=== PATIENT | male | born 1960 | race Caucasian/White ===

== ENCOUNTER → 2020-06-26 14:30 | Outpatient (BNVA) | payer OTHER, SELFPAY | PROVIDERS: PCP Internal Medicine; Referring Provider Internal Medicine; Visit Provider Urology | DX: Z76.89 Persons encountering health services in other specified circumstances (principal) ==

== ENCOUNTER → 2020-07-31 15:14 | Outpatient (BNVA) | payer OTHER, SELFPAY | PROVIDERS: PCP Internal Medicine; Visit Provider Urology | DX: R97.20 Elevated prostate specific antigen [PSA] (principal) | CPT/HCPCS: 81002 ==

== ENCOUNTER → 2021-01-29 08:43 | Outpatient (BNVA) | payer OTHER, SELFPAY | PROVIDERS: PCP Internal Medicine; Visit Provider Urology ==

== ENCOUNTER → 2021-07-03 09:37 | Outpatient (BNVA) | payer OTHER, SELFPAY | PROVIDERS: PCP Internal Medicine; Visit Provider Urology ==

== ENCOUNTER → 2021-12-31 09:27 | Outpatient (BNVA) | payer OTHER, SELFPAY | PROVIDERS: PCP Internal Medicine; Visit Provider Urology | DX: N40.1 Benign prostatic hyperplasia with lower urinary tract symptoms (principal); N13.8 Other obstructive and reflux uropathy; R35.0 Frequency of micturition; R97.20 Elevated prostate specific antigen [PSA] | CPT/HCPCS: 51798 ==

== ENCOUNTER → 2022-07-25 09:56 | Outpatient (BNVA) | payer OTHER, SELFPAY | PROVIDERS: PCP Internal Medicine; Visit Provider Urology | DX: N40.1 Benign prostatic hyperplasia with lower urinary tract symptoms (principal); N13.8 Other obstructive and reflux uropathy; R97.20 Elevated prostate specific antigen [PSA] | CPT/HCPCS: 51798 ==

== ENCOUNTER 2023-07-24 09:24 | Outpatient (AMB) | payer MEDICARE, OTHER, SELFPAY ==
--- NOTE | 2023-07-24 09:39 | A.OFFVIS_ITS ---
Intake Intake Visit Reasons: 1Y PVR Intake Note: Patient is Present for Follow Up Urology Medication: Finasteride, Tamsulosin Antibiotic Allergies: None Blood Thinners: Eliquis PVR: 0ml Currently patient is on eliquis for AFib patient states that soon Eliquis will be switched to Xarelto. Allergies No Known Allergies Allergy (Verified 07/24/23 09:42) HPI HPI Comments History of Present Illness Details Fco is a pleasant male. He is a patient of Dr. Wu. He is seen for the following urologic issues - elevated PSA - lower urinary tract symptoms Twelve month follow-up Has been on finasteride every other day Effective stream and bladder emptying Discussed bladder instability Is starting to bathroom plan May benefit from overactive bladder medications Does not think he is quite ready for this PCP checked PSA Lower urinary tract symptoms Urgency secondary to diet Elevated PSA Effective for urination with minimal symptoms He presents for - further evaluation of elevated PSA, Current management is - finasteride Laboratory investigations include - a total PSA evaluation - 03/17 3.5, 05/18 4.9 - 07/19 3.7, 01/16 4.5, 06/18 2.4, 12/18 1.5 Imaging investigations include - none Individualized Prostate Cancer Risk Calculator - < 5% high risk - would like to continue with PSA A TRUS biopsy - has not been performed Symptoms include -minimal nocturia. Overall symptoms are mild Therapeutic plan will be - continue finasteride PFSH Social History Years Smoked: 25-30 years Review of Systems Const Denies chills and Denies fever(s) Card Reports no additional complaints and Denies syncope Resp Denies cough GI Denies abdominal pain and Denies heartburn Reports as per HPI and Denies change in libido Neuro Denies syncope Psych Denies change in libido Endo Denies change in libido Physical Exam Const General: cooperative, healthy appearing, comfortable and no acute distress Orientation/consciousness: patient oriented x3 HEENT Face and sinus: Yes normal facial exam Mouth: moist mucous membranes Neck Neck: Yes normal visual inspection, Yes full ROM and Yes trachea midline Chest Chest palpation & inspection: normal inspection of the chest Resp Effort & Inspection: normal respiratory effort, able to speak in complete sentences and no respiratory distress GI Inspection: Yes normal to inspection Back/Spine/Pelvis Cervical Spine: normal cervical lordosis Thoracic/Lumbar Spine: thoracic and lumbar spine normal to inspection Skin General skin exam: no rashes or lesions noted Neuro General: patient oriented x3, gait normal, tone normal and moves all extremities Extrem General: Yes normal to inspection and Yes capillary refill normal Office Procedures Post Void Residual Post Residual Void Post Void Residual (PVR): 0 [id number] Void Residual by ultrasound Assessment & Plan Assessment & Plan (1) Urinary frequency: Code(s): R35.0 - Frequency of micturition (2) BPH w urinary obs/LUTS: Code(s): N40.1 - Benign prostatic hyperplasia with lower urinary tract symptoms; N13.8 - Other obstructive and reflux uropathy Plan Six-month follow-up tele Orders: Orders AMB Post Void Residual by ultrasound Today N13.8 - Other obstructive and reflux uropathy, N40.1 - Benign prostatic hyperplasia with lower urinary tract symptoms Patient Instructions: Imaging studies, laboratory and physical exam results were discussed and reviewed in detail. No major barriers to patient understanding were identified. An opportunity to ask questions regarding the treatment plan was provided. All questions were answered. The patient expressed understanding and agreement with the above treatment plan. The patient is aware they should contact our office by phone for worsening of their current condition or the appearance of new urologic symptoms. Compliance is encouraged with any medications and followup testing that is ordered. It is a privilege to participate in the urologic care of your patient. If you have any questions or concerns regarding treatment for the above conditions, or other urologic issues, please do not hesitate to contact me. The office telephone contact is [phone]. This note is constructed using voice recognition software. While every effort has been made to ensure accuracy application tester errors may have been included. Yours sincerely, Dr Alexander Manzano MD, CINDY [facility] - Urology Providers of Expert, Compassionate Care for the Genitourinary System Coding Level of Care Code Est Pt Level 4 (89851) Diagnoses Urinary frequency R35.0 BPH w urinary obs/LUTS N40.1; N13.8 CPT Codes Post Residual Void - PVR CPT Code: 41804-Morb Void Residual by ultrasound ([id number])
== END 2023-07-24 10:14 | disposition home or self-care (01) ==
PROVIDERS: Visit Provider Urology
DX: N40.1 Benign prostatic hyperplasia with lower urinary tract symptoms (principal); R35.0 Frequency of micturition; N13.8 Other obstructive and reflux uropathy
CPT/HCPCS: 99213

== ENCOUNTER → 2023-07-24 09:24 | Outpatient (BNVA) | payer OTHER, SELFPAY | PROVIDERS: Visit Provider Urology | DX: N40.1 Benign prostatic hyperplasia with lower urinary tract symptoms (principal); N13.8 Other obstructive and reflux uropathy; R35.0 Frequency of micturition | CPT/HCPCS: 51798; 99212 ==

== ENCOUNTER 2024-01-22 08:33 | Outpatient (AMB) | payer MEDICARE, OTHER, SELFPAY ==
--- NOTE | 2024-01-22 08:30 | MHC.OFFVIS ---
Intake Visit Reasons: 6m follow up Intake Note: Patient is Present for 6m Follow Up Urology Medication: Finasteride, Tamsulosin Antibiotic Allergies: None Blood Thinners: Eliquirene Diesel Engine Specialist Required: No Allergies No Known Allergies Allergy (Verified 01/22/24 08:31) HPI Comments Details: Fco is a pleasant male. He is a patient of Dr. Wu. He is seen for the following urologic issues - elevated PSA - lower urinary tract symptoms Telemedicine Evaluation 15 min Consultation DoxCas[employer] Billie Video Has been on finasteride every other day Effective stream and bladder emptying Prior discussion of bladder instability Has progressed and is now involve the bathroom planning and use of bathrooms in public Trial overactive bladder medication Lower urinary tract symptoms Urgency secondary to diet Elevated PSA Effective for urination with minimal symptoms He presents for - further evaluation of elevated PSA, Current management is - finasteride Laboratory investigations include - a total PSA evaluation - 03/17 3.5, 05/18 4.9 - 07/19 3.7, 01/16 4.5, 06/18 2.4, 12/18 1.5 Imaging investigations include - none Individualized Prostate Cancer Risk Calculator - < 5% high risk - would like to continue with PSA A TRUS biopsy - has not been performed Symptoms include -minimal nocturia. Overall symptoms are mild Therapeutic plan will be - continue finasteride [facility] Social History Years Smoked: 25-30 years Review of Systems Const All systems reviewed & are unremarkable except as noted in HPI and below Reports no additional complaints Resp Reports no additional complaints GI Reports no additional complaints Reports as per HPI Musc Reports no additional complaints Physical Exam Telemedicine evaluation Appropriate responses Regular breathing rate and rhythm HEENT Head: Yes normal to inspection Ears: hearing grossly normal bilaterally Eyes General: appearance normal, both eyes and all related structures Neck Neck: Yes normal visual inspection Chest Chest palpation & inspection: normal inspection of the chest Resp Effort & Inspection: normal respiratory effort and able to speak in complete sentences Telehealth Telehealth Telehealth Platform: ugichem Location of provider rendering services: practice address Location of patient: address on file Patient Identification confirmed using: Name, : Yes Telehealth method: video Patient verbally consented to treatment: Yes Patient verbally consented to billing insurance company: Yes Patient informed of any privacy concerns related to visit: Yes Minutes spent on Phone/Video with Pt.: 15 Assessment & Plan Assessment & Plan (1) Bladder instability: Code(s): N32.89 - Other specified disorders of bladder Category: Medical (2) BPH w urinary obs/LUTS: Code(s): N40.1 - Benign prostatic hyperplasia with lower urinary tract symptoms; N13.8 - Other obstructive and reflux uropathy Category: Medical Plan Trial oxybutynin Medications: New oxybutynin chloride ER 5 mg PO DAILY 30 days 30 tabs 1RF N32.81 - Overactive bladder, N32.89 - Other specified disorders of bladder, R39.15 - Urgency of urination Patient Instructions: Imaging studies, laboratory and physical exam results were discussed and reviewed in detail. No major barriers to patient understanding were identified. An opportunity to ask questions regarding the treatment plan was provided. All questions were answered. The patient expressed understanding and agreement with the above treatment plan. The patient is aware they should contact our office by phone for worsening of their current condition or the appearance of new urologic symptoms. Compliance is encouraged with any medications and followup testing that is ordered. It is a privilege to participate in the urologic care of your patient. If you have any questions or concerns regarding treatment for the above conditions, or other urologic issues, please do not hesitate to contact me. The office telephone contact is [phone]. This note is constructed using voice recognition software. While every effort has been made to ensure accuracy forming machine operator errors may have been included. Yours sincerely, Dr Alexander Manzano MD, CIND[facility] - Urology Providers of Expert, Compassionate Care for the Genitourinary System Coding Level of Care Code Tele Est Pt Level 4 (06140) Diagnoses Bladder instability N32.89 BPH w urinary obs/LUTS N40.1; N13.8
== END 2024-01-22 09:35 | disposition home or self-care (01) ==
LOC: HO.HUSH 08:33
PROVIDERS: PCP Internal Medicine; Visit Provider Urology
DX: N32.89 Other specified disorders of bladder (principal); N40.1 Benign prostatic hyperplasia with lower urinary tract symptoms; N13.8 Other obstructive and reflux uropathy
CPT/HCPCS: 99214

== ENCOUNTER → 2024-01-22 08:33 | Outpatient (BNVA) | payer MEDICARE, OTHER, SELFPAY | PROVIDERS: PCP Internal Medicine; Visit Provider Urology ==

== ENCOUNTER 2024-03-23 09:02 | Outpatient (AMB) | payer MEDICARE, OTHER, SELFPAY ==
--- NOTE | 2024-03-23 09:02 | A.OFFVIS_ITS ---
Intake Visit Reasons: 2M Med Review(Oxybutynin) Intake Note: Patient is Present for Telephone Follow Up Med Review Urology Med: Finasteride, Oxybutynin Antibiotic Allergy: None Blood Thinner: Aspirin, Eliquis Recent 2021- .5PSA: Last PVR:0 Dump Operator Required: No Accompanied by: Self / Same As Patient Allergies No Known Allergies Allergy (Verified 03/23/24 09:03) Medication List - Last Reconciled 03/23/24 by Alexander Manzano MD apixaban (Eliquis) 5 mg PO BID atorvastatin 20 mg PO DAILY cholecalciferol (vitamin D3) 10 mcg PO DAILY diltiazem HCl CD 240 mg PO DAILY finasteride 5 mg PO DAILY 90 days flu vacc [id number] 6mos up(PF) mL IM omeprazole 20 mg PO DAILY HPI Comments Details: Fco is a pleasant male. He is a patient of Dr. Wu. He is seen for the following urologic issues - elevated PSA - lower urinary tract symptoms Telemedicine Evaluation 15 min Consultation Be Spotted Billie Video Follow-up trial of oxybutynin Does not think he had grade effect from the oxybutynin Discussed trial tadalafil Will also check PSA in three-month Prior discussion of bladder instability Has progressed and is now involve the bathroom planning and use of bathrooms in public Nocturia x2 Lower urinary tract symptoms Has combination symptoms both storage and emptying related Urgency secondary to diet Has been on finasteride every other day for bladder emptying Elevated PSA Effective for urination with minimal symptoms He presents for - further evaluation of elevated PSA, Current management is - finasteride Laboratory investigations include - a total PSA evaluation - 03/17 3.5, 05/18 4.9 - 07/19 3.7, 01/16 4.5, 06/18 2.4, 12/18 1.5 Imaging investigations include - none Individualized Prostate Cancer Risk Calculator - < 5% high risk - would like to continue with PSA A TRUS biopsy - has not been performed Symptoms include -minimal nocturia. Overall symptoms are mild Therapeutic plan will be - continue finasteride PFSH Social History Years Smoked: 25-30 years Review of Systems Const All systems reviewed & are unremarkable except as noted in HPI and below Reports no additional complaints Resp Reports no additional complaints GI Reports no additional complaints Reports as per HPI [facility] [place] Reports no additional complaints Physical Exam Telemedicine evaluation Appropriate responses Regular breathing rate and rhythm HEENT Head: Yes normal to inspection Ears: hearing grossly normal bilaterally Eyes General: appearance normal, both eyes and all related structures Neck Neck: Yes normal visual inspection Chest Chest palpation & inspection: normal inspection of the chest Resp Effort & Inspection: normal respiratory effort and able to speak in complete sentences Telehealth Telehealth Telehealth Platform: Be Spotted Location of provider rendering services: practice address Location of patient: address on file Patient Identification confirmed using: Name, : Yes Telehealth method: video Patient verbally consented to treatment: Yes Patient verbally consented to billing insurance company: Yes Patient informed of any privacy concerns related to visit: Yes Minutes spent on Phone/Video with Pt.: 15 Assessment & Plan Assessment & Plan (1) Bladder instability: Code(s): N32.89 - Other specified disorders of bladder Category: Medical (2) Elevated PSA: Code(s): R97.20 - Elevated prostate specific antigen [PSA] Category: Medical (3) BPH w urinary obs/LUTS: Code(s): N40.1 - Benign prostatic hyperplasia with lower urinary tract symptoms; N13.8 - Other obstructive and reflux uropathy Category: Medical Plan Trial tadalafil Three-month follow-up Orders: Orders Prostate Specific Antigen 3 Months N13.8 - Other obstructive and reflux uropathy, N40.1 - Benign prostatic hyperplasia with lower urinary tract symptoms Medications: New tadalafil 5 mg PO DAILY 90 days 90 tabs 0RF sexual activity N32.89 - Other specified disorders of bladder Discontinued oxybutynin chloride ER Discontinued Reason: Patient Completed Course 5 mg PO DAILY 30 days 30 tabs 1RF N32.81 - Overactive bladder, N32.89 - Other specified disorders of bladder, R39.15 - Urgency of urination Patient Instructions: Imaging studies, laboratory and physical exam results were discussed and reviewed in detail. No major barriers to patient understanding were identified. An opportunity to ask questions regarding the treatment plan was provided. All questions were answered. The patient expressed understanding and agreement with the above treatment plan. The patient is aware they should contact our office by phone for worsening of their current condition or the appearance of new urologic symptoms. Compliance is encouraged with any medications and followup testing that is ordered. It is a privilege to participate in the urologic care of your patient. If you have any questions or concerns regarding treatment for the above conditions, or other urologic issues, please do not hesitate to contact me. The office telephone contact is [phone]. This note is constructed using voice recognition software. While every effort has been made to ensure accuracy clinical operations manager errors may have been included. Yours sincerely, Dr Alexander Manzano MD, CINDY [facility] - Urology Providers of Expert, Compassionate Care for the Genitourinary System Coding Level of Care Code Tele Est Pt Level 4 (19522) Diagnoses Bladder instability N32.89 Elevated PSA R97.20 BPH w urinary obs/LUTS N40.1; N13.8
== END 2024-03-23 09:55 | disposition home or self-care (01) ==
LOC: HO.HUSH 09:02
PROVIDERS: PCP Internal Medicine; Visit Provider Urology
DX: N32.89 Other specified disorders of bladder (principal); R97.20 Elevated prostate specific antigen [PSA]; N40.1 Benign prostatic hyperplasia with lower urinary tract symptoms; N13.8 Other obstructive and reflux uropathy
CPT/HCPCS: 99214

== ENCOUNTER → 2024-03-23 09:02 | Outpatient (BNVA) | payer MEDICARE, OTHER, SELFPAY | PROVIDERS: PCP Internal Medicine; Visit Provider Urology ==

== ENCOUNTER 2024-07-26 14:54 | Outpatient (AMB) | payer MEDICARE, OTHER, SELFPAY ==
--- NOTE | 2024-07-26 15:03 | A.OFFVIS_ITS ---
Intake Visit Reasons: PSA/Med Review(Tadalafil)set Intake Note: Patient is present for PSA/MED REVIEW Urology Medication:FINASTERIDE,TADALAFIL Antibiotic Allergy:NONE Blood Thinner:APIXABAN Headline Writer Required: No Allergies No Known Allergies Allergy (Verified 07/26/24 15:03) HPI Comments Details: Fco is a pleasant male. He is a patient of Dr. Wu. He is seen for the following urologic issues - elevated PSA - lower urinary tract symptoms Four month follow-up Trial of tadalafil for bladder instability Failed oxybutynin Has progressed and is now involve the bathroom planning and use of bathrooms in public Tadalafil successful for bladder stability Only getting up once per night Would like to come off finasteride as thinks this has libido effect Did discuss potential need for prostate procedure Lower urinary tract symptoms Has combination symptoms both storage and emptying related Urgency secondary to diet Has been on finasteride every other day for bladder emptying Elevated PSA Effective for urination with minimal symptoms He presents for - further evaluation of elevated PSA, Current management is - finasteride Laboratory investigations include - a total PSA evaluation - 03/17 3.5, 05/18 4.9, 07/19 3.7, 01/16 4.5, 06/18 2.4, 12/18 1.5 Imaging investigations include - none Individualized Prostate Cancer Risk Calculator - < 5% high risk - would like to continue with PSA A TRUS biopsy - has not been performed Symptoms include -minimal nocturia. Overall symptoms are mild Therapeutic plan will be -cease finasteride PFSH Social History Years Smoked: 25-30 years Review of Systems Const Denies chills and Denies fever(s) Card Reports no additional complaints and Denies syncope Resp Denies cough GI Denies abdominal pain and Denies heartburn Reports as per HPI and Denies change in libido Neuro Denies syncope Psych Denies change in libido Endo Denies change in libido Physical Exam Const General: cooperative, healthy appearing, comfortable and no acute distress Orientation/consciousness: patient oriented x3 HEENT Face and sinus: Yes normal facial exam Mouth: moist mucous membranes Neck Neck: Yes normal visual inspection, Yes full ROM and Yes trachea midline Chest Chest palpation & inspection: normal inspection of the chest Resp Effort & Inspection: normal respiratory effort, able to speak in complete sentences and no respiratory distress GI Inspection: Yes normal to inspection Back/Spine/Pelvis Cervical Spine: normal cervical lordosis Thoracic/Lumbar Spine: thoracic and lumbar spine normal to inspection Skin General skin exam: no rashes or lesions noted Neuro General: patient oriented x3, gait normal, tone normal and moves all extremities Extrem General: Yes normal to inspection and Yes capillary refill normal Results AMB Urinalysis, Automated UA Leukoctes 0 Pranav/uL Last Edit by LAMAR Harris on 07/26/24 15:12 UA Nitrite Negative Last Edit by Farrah Taveras CCM on 07/26/24 15:12 UA Urobilinogen 0.2 mg/dL Last Edit by LAMAR Harris on 07/26/24 15:1 2 UA Protein 15 mg/dL Last Edit by Farrah Taveras CCM on 07/26/24 15:12 UA pH 5.5 Last Edit by Farrah Taveras CCM on 07/26/24 15:12 UA Blood 0 Gume/uL Last Edit by Farrah Taveras CCM on 07/26/24 15:12 UA Specific [place] 1.020 Last Edit by LAMAR Harris on 07/26/24 15: 12 UA Ketone Negative Last Edit by LAMAR Harris on 07/26/24 15:12 UA Bilirubin 0 mg/dL Last Edit by Farrah Taveras [facility] on 07/26/24 15:12 UA Glucose 0 mg/dL Last Edit by Farrah Taveras [facility] on 07/26/24 15:12 Results Reviewed Results Reviewed: Laboratory Last Values Urine pH (Auto) 5.5 07/26/24 15:11 Specific [place] (Auto) 1.020 07/26/24 15:11 Urine Protein (Auto) 15 mg/dL 07/26/24 15:11 Glucose (UA)(Auto) 0 mg/dL 07/26/24 15:11 Urine Ketones (Auto) Negative 07/26/24 15:11 Urine Blood (Auto) 0 Gume/uL 07/26/24 15:11 Urine Nitrite (Auto) Negative 07/26/24 15:11 Urine Bilirubin (Auto) 0 mg/dL 07/26/24 15:11 Urine Urobilinogen (Auto) 0.2 mg/dL 07/26/24 15:11 Leukocyte Esterase (Auto) 0 Pranav/uL 07/26/24 15:11 Assessment & Plan Assessment & Plan (1) Elevated PSA: Code(s): R97.20 - Elevated prostate specific antigen [PSA] Category: Medical Plan Six-month follow-up Orders: Orders AMB Urinalysis Automated Today Z13.9 - Encounter for screening, unspecified Medications: Refilled tadalafil 5 mg PO DAILY 90 days 90 tabs 1RF sexual activity N32.89 - Other specified disorders of bladder Patient Instructions: Imaging studies, laboratory and physical exam results were discussed and reviewed in detail. No major barriers to patient understanding were identified. An opportunity to ask questions regarding the treatment plan was provided. All questions were answered. The patient expressed understanding and agreement with the above treatment plan. The patient is aware they should contact our office by phone for worsening of their current condition or the appearance of new urologic symptoms. Compliance is encouraged with any medications and followup testing that is ordered. It is a privilege to participate in the urologic care of your patient. If you have any questions or concerns regarding treatment for the above conditions, or other urologic issues, please do not hesitate to contact me. The office telephone contact is [phone]. This note is constructed using voice recognition software. While every effort has been made to ensure accuracy chucking machine set up operator tool errors may have been included. Yours sincerely, Dr Alexander Manzano MD, CINDY [facility] - Urology Providers of Expert, Compassionate Care for the Genitourinary System Coding Level of Care Code Est Pt Level 3 (01376) Diagnoses Elevated PSA R97.20
--- OUTSIDE RECORDS SUMMARY | 2024-07-26 15:50 | XMS_ITS ---
Author Organization Dylon Law MD, Address [address] [address] Care Team Providers Care Senior Sharepoint Developer Name Role Phone tomasa talbot Primary Care Provider Dylon Seo Unavailable [phone] ALLERGIES Allergen (clinical drug ingredient) Drug/Non Drug Allergy documented on EMR Reaction Allergy Type Onset Date Status bupivacaine Sensorcaine Unknown Drug Allergy Act karely lidocaine Lidocaine Unknown Drug Allergy Active REASON FOR VISIT Left knee osteoarthritis with excellent response to cortisone injection. MEDICATIONS Medication SIG (Take, Route, Frequency, Duration) Notes Start Date End Date Status Eliquis Unknown Finasteride 5 MG Oral for 90 U nknown Cardizem LA 240 MG Oral for 90 Unknown dilTIAZem HCl ER Coated Beads 240 MG (Prior Auth#:[id number]) Oral for 90 Unknown Omeprazole 20 MG (Prior Auth#:[id number]) Oral for 90 Unknown Atorvastatin Calcium 20 MG (Prior Auth#:[id number]) Oral for 90 Unknown Lipitor Unknown SOCIAL HISTORY Tobacco Use: Social History Observation Description Date Details (start date - stop date) Never Smoker NA - NA Sex Assigned At : Social History Observation Description Sex Assigned At Unknown Smoking Question Answer Notes Do you smoke? Never smoker Additional Findings: Tobacco Non-User Current no n-smoker VITAL SIGNS Height 69 in 08/21/2023 Weight 173 lbs 08/21/2023 BMI 25.54 kg/m2 08/21/2023 Encounters Encounter Location Date Provider Diagnosis [facility] [address] [address] 08/21/2023 Dylon Law Primary osteoarthrit is of left knee M17.12 ; Bilateral primary osteoarthritis of knee M17.0 and Arthritis of knee, left M17.12 ASSESSMENTS Encounter Date Diagnosis Assessment Notes Treatment Notes Treatment Clinical Notes 08/21/2023 Primary osteoarthritis of left knee (ICD-10 - M17.12) 08/21/2023 Bilateral primary osteoarthritis of knee (ICD-10 - M17.0) Patient Educated with: Anatomy of the Knee.pdf (AnatomyoftheKnee .pdf) IMPRESSION: Left knee osteoarthritis. PLAN: Continue activities as tolerated. When this becomes more painful again, we will consider a repeat cortisone injection. At that visit we will obtain new radiographs of his left knee. The patient and I discussed their condition completely. Treatment options and associated risks and benefits were reviewed. All questions were answered and explained to their satisfaction. Dictated by Dave Fung/randal 08/21/2023 Arthritis of knee, left (ICD-10 - M17.12) PLAN OF TREATMENT Treatment Notes Assessment Notes Bilateral primary osteoarthritis of knee Patient Educated with: Anatomy of the Knee.pdf (AnatomyoftheKnee.pdf) IMPRESSION: Left knee osteoarthritis. PLAN: Continue activities as tolerated. When this becomes more painful again, we will consider a repeat cortisone injection. At that visit we will obtain new radiographs of his left knee. The patient and I discussed their condition completely. Treatment options and associated risks and benefits were reviewed. All questions were answered and explained to their satisfaction. Dictated by Dave Fung/randal Progress Notes * Examination Category Sub-Category Detail Notes GENERAL EXAMINATION General appearance: Within n ormal limits Skin: Exam of upper extrem ities and lower extremeties are within normal limits Neurologic: grossly intact Orientation: Alert and Oriented x 3 (Time, Place, Person) Mood: Within normal limits Gait: Without significant limitation Vascular: Exam is grossly norm al
--- OUTSIDE RECORDS SUMMARY | 2024-07-26 15:51 | XMS_ITS | Clinical Summary ---
Author Organization [facility] it Address [address] [place] [address] Care Team Providers Care Paper Wood Cutter Name Role Phone Kali Wu MD Primary Care Provider [phone] Allergies Active Allergy Reactions Criticality Noted Date Comments Bee Venom Protein (Honey Bee) 05/07/2022 Other reaction(s): Bad swelling Bupivacaine 07/21/2023 Other reaction(s): Unknown Lidocaine 07/21/2023 Other Reaction(s): OTHER Medications Medication Sig Dispensed Refills Start Date End Date Status apixaban (ELIQUIS) 5 mg tablet Take 5 mg by mouth 2 times daily. Active dilTIAZem CD (CARDIZEM CD) 240 mg 24 hr capsule Take 1 capsule (240 mg total) by mouth 1 (one) time each day. Active finasteride (PROSCAR) 5 mg tablet Take 1 tablet (5 mg total) by mouth 3 (three) times a week. Active atorvastatin (LIPITOR) 20 mg tablet Take 20 mg by mouth daily. Active omeprazole (PRILOSEC) 20 mg tablet,delayed release (DR/EC) Take 20 mg by mouth daily. Active fexofenadine/pseudoeph edrine (ALEX-D 24 HOUR ORAL) Take by mouth. Active Active Problems Problem Noted Date Diagnosed Date PAC (premature atrial contraction) 05/07/2022 Dyslipidemia 09/12/2020 Overview (05/30/2024): Dyslipidemia Last Assessment & Plan: Recently replete benign lipid profile in this relatively low risk individual. Continue atorvastatin, healthy diet and regular exercise. Hypertension 09/12/2020 Overview (05/30/2024): Hypertensive disorder Last Assessment & Plan: This gentleman has whitecoat hypertension and is doing well with home readings well within normal limits on diltiazem. I encouraged a low-sodium diet and regular exercise Paroxysmal atrial fibrillation 09/12/2020 Overview (05/30/2024): Paroxysmal atrial fibrillation Last Assessment & Plan: This very pleasant 63-year-old gentleman with a [id number] score of 2 remains on anticoagulation and switching over to Xarelto at his request. He is already investigated the insurance costs and understands that is best taken with food. We talked about his atrial fibrillation burden and the need to reduce his alcohol intake. I talked about catheter ablation or using antiarrhythmic agent if he has a increasing burden over the next year overall he feels like the amount that he is had is well-tolerated and he will just continue with diltiazem. He does not believe he has sleep apnea, his hypertension is well-controlled and he is trying to maintain stable weight. Social History Tobacco Use Types Packs/Day Years Used Date Smoking Tobacco: Former Smokeless Tobacco: Never Alcohol Use Standard Drinks/Week Comments Yes 0 (1 standard drink = 0.6 oz pur e alcohol) Sex and Gender Information Value Date Recorded Sex Assigned at Not on file Gender Identity Not on file Sexual Orientation Not on file Obstetrics History Last Filed Vital Signs Vital Sign Reading Time Taken Comments Blood Pressure 150/82 07/21/2023 1:33 PM EST Pulse 76 07/21/2023 1:33 PM EST Temperature - - Respiratory Rate - - Oxygen Saturation - - Inhaled Oxygen Concentration - - Weight 77.6 kg (171 lb) 07/21/2023 1:33 PM EST Height 175.3 cm (5' 9 ) 07/21/2023 1:33 PM EST Body Mass Index 25.25 07/21/2023 1:33 PM EST Plan of Treatment Upcoming Encounters Date Type Department Care Team (Late st Contact Info) Description 08/02/2024 9:25 AM EST Office Visit [facility] - [address] [place] [address] George Rojas MD [address] [place] [address] Health Maintenance Due Date Last Done Comments DTaP,Tdap,and Td Vaccines (1 - Tdap) 1977 Zoster Vaccines (1 of 2) 2008 RSV Immunization Patients 60 + Years Old (1 - Risk 60-74 years 1-dose series) 2018 Abdominal Aortic Aneurysm (A AA) Screen 05/28/2022 Cholesterol Screening (Lipid Panel) 05/28/2022 Colorectal Cancer Screening: Colonoscopy 05/28/2022 Depression Screening 05/28/2022 Hepatitis C Screening 05/28/2022 Medicare Annual Wellness Visit 05/28/2022 Social Influencers of Health Screening 05/28/2022 Hypertension/CHF/CAD Annual BMP Blood Test 06/13/2022 Falls Risk Assessment 2023 Pneumococcal Vaccine: 65+ Ye ars (1 of 1 - PCV) 2023 COVID-19 Vaccine (1 - 2023-2 5 season) 2024 Influenza Vaccine (#1) 2024 HIB Vaccines Aged Out No longer eligi ble based on patient's age to complete this topic HPV Vaccines Aged Out No longer eligi ble based on patient's age to complete this topic Hepatitis A Vaccines Aged Out No long er eligible based on patient's age to complete this topic Hepatitis B Vaccines Aged Out No long er eligible based on patient's age to complete this topic IPV Vaccines Aged Out No longer eligi ble based on patient's age to complete this topic MMR Vaccines Aged Out No longer eligi ble based on patient's age to complete this topic Meningococcal ACWY Vaccine Aged Out N o longer eligible based on patient's age to complete this topic RSV Immunization Patients Un annika 20 months Aged Out No longer eligible b ased on patient's age to complete this topic Varicella Vaccines Aged Out No longer eligible based on patient's age to complete this topic Care Teams Paper Wood Cutter Relationship Specialty Start Date End Date Kali Wu MD PCP - General 12/01/12
--- OUTSIDE RECORDS SUMMARY | 2024-07-26 15:51 | XMS_ITS | Patient Health Record ---
Author Organization [facility] Address [address] [facility] [address] [place] [address] Care Team Providers Care Occupational Medicine Physician Name Role Phone tomasa talbot Primary Care Provider Dylon Seo Unavailable [phone] ALLERGIES Allergen (clinical drug ingredient) Drug/Non Drug Allergy documented on EMR Reaction Allergy Type Onset Date Status bupivacaine Sensorcaine Unknown Drug Allergy Act karely lidocaine Lidocaine Unknown Drug Allergy Active REASON FOR REFERRAL No Information MEDICATIONS Medication SIG (Take, Route, Frequency, Duration) Notes Start Date End Date Status Atorvastatin Calcium 20 MG (Prior Auth#:[id number]) Oral for 90 Unknown Lipitor Unknown Eliquis Unknown Finasteride 5 MG Oral for 90 U nknown Cardizem LA 240 MG Oral for 90 Unknown dilTIAZem HCl ER Coated Beads 240 MG (Prior Auth#:[id number]) Oral for 90 Unknown Omeprazole 20 MG (Prior Auth#:[id number]) Oral for 90 Unknown SOCIAL HISTORY Tobacco Use: Social History Observation Description Date Details (start date - stop date) Never Smoker NA - NA Sex Assigned At : Social History Observation Description Sex Assigned At Unknown Smoking Question Answer Notes Do you smoke? Never smoker Additional Findings: Tobacco Non-User Current no n-smoker PROBLEMS Problem Type ICD Code Onset Dates Problem Status W/U Status Risk SNOMED Code Notes Problem Primary osteoarthritis of left knee (M17.12) Active confirmed Osteoarthritis of knee (768785452) Problem Arthritis of knee, left (M17.12) Active confirmed Arthritis of le ft knee (8484809974159852 ) Problem Bilateral primary osteoarthritis of knee (M17.0) Active confirmed Osteoarthritis of knee (860136184) VITAL SIGNS Height 69 in 08/21/2023 Weight 173 lbs 08/21/2023 BMI 25.54 kg/m2 08/21/2023 Encounters Encounter Location Date Provider Diagnosis [place] [address] [facility] [place], [address] [address] 08/21/2023 [facility] Primary osteoarthrit is of [...] and explained to their satisfaction. Dictated by [facility] Law M.D. RACHEL/randal 08/21/2023 Arthritis of knee, left (ICD-10 - M17.12) PLAN OF TREATMENT No Information Insurance Providers Payer Name Payer Address Payer Phone Subscriber Number Group Number Insured Name Patient Relationship to Insured Coverage Start Date Coverage End Date [facility] Indemnity- [place] [address] [place] [address] [id number] LISSA AVILES Self - patient is the insured Medicare [address] [place] [address] [phone] [id number] LISSA AVILES Self - patient is the insured MEDICATIONS ADMINISTERED Medication Instructions Date of Administration Dosage Notes Cortisone L Knee intra artic ular injection 06/04/2020 Cortisone L Knee intra artic ular injection 09/17/2020 Cortisone L Knee intra artic ular injection 04/05/2021 Cortisone L Knee intra artic ular injection 10/11/2021 Cortisone L Knee intra artic ular injection 07/11/2022 Cortisone L Knee intra artic ular injection 07/03/2023 MEDICAL (GENERAL) HISTORY Medical History History ICD Code HLD (hyperlipidemia) E78.5 Unspecified atrial fibrillation I48.91 PROSTATE ENLARGEMENT Surgical History Surgery Date(Month/Year) APPENDECTOMY LT KNEE ARTHROSCOPY 2019 NECK BL ELBOWS
--- OUTSIDE RECORDS SUMMARY | 2024-07-26 15:51 | XMS_ITS | Clinical Summary ---
Author Organization [facility] Address [address] [place] [address] Care Team Providers Care Irrigation Laborer Name Role Phone No, Pcp CHEMICAL ENGINEERING PROFESSOR Primary Care Provider Unavailabl e Social History Tobacco Use Types Packs/Day Years Used Date Smoking Tobacco: Never Assessed Sex and Gender Information Value Date Recorded Sex Assigned at Not on file Legal Sex Male 10:17 AM EST Gender Identity Not on file Sexual Orientation Not on file Plan of Treatment Health Maintenance Due Date Last Done Comments Colorectal Cancer: COLONOSCO PY Screening every 10 yrs (or Modifier) 1958 Depression: Screening Annual ly using PHQ-2/9 in Adults 18 yrs or above (or HM Modifier)([facility]) 1976 Hepatitis C Virus Infection in Adolescents and Adults: Screening (or Modifier) ([facility]) 1976 SDAL Screening Reminder: Christel kim for all adults ([facility]) 1976 Tobacco Smoking Cessation: i n Adults excluding Women: Behavioral and Pharmacotherapy Interventions ([facility]) 1976 DTaP/Tdap/Td Vaccines ([facility]) (1 - Tdap) 1977 Lipid Screening: Every 5 yrs for Men aged 35+ (or HM Modifier) ([facility]) 1994 Colorectal Cancer Screening 45 -75 Yrs (or HM Modifier ) 2003 Colorectal Cancer: FLEXIBLE SIGMOIDOSCOPY Screening every 5 yrs 2003 Colorectal Cancer: Fecal Imm unochemical Test (FIT) Annually [facility] 2003 Colorectal Cancer: High-sens itivity gFOBT Screening Annually [facility] 2003 Colorectal Cancer: Stool Col oguard Screening every 3 yrs 2003 Colorectal Cancer:CT Colonography Screening every 5 yr s 2003 Zoster/Shingles Vaccine Seri es Screening: Adults aged 18+ yrs (or HM Modifiers)([facility]) (1 of 2) 2008 RSV Vaccines (1 - 1-dose 60+ series) 2018 Pneumococcal Vaccination Scr eening: Patients 65+ yrs of age ([facility]) (1 of 1 - PCV) 2023 Flu Vaccination: Ages 65+: Y early High Dose Recommended (or Modifier)([facility]) 01/28/2024 COVID-19 Vaccine Screening: Initial Series and Booster Status ([facility]) ( - season) 2024 Medical Devices Not on file Insurance [facility] Care Teams Irrigation Laborer Relationship Specialty Start Date End Date No, Pcp, CHEMICAL ENGINEERING PROFESSOR N/A Do not use PCP - General Family Medicine 05/03/20
--- OUTSIDE RECORDS SUMMARY | 2024-07-26 15:51 | XMS_ITS ---
Author Organization [facility] Address [address] [address] Care Team Providers Care Video Control Operator Name Role Phone tomasa talbot Primary Care Provider Ranjana [facility] [phone] REASON FOR VISIT injection Encounters Encounter Location Date Provider Diagnosis [place] [address] [facility] [address] [place] [address] 06/16/2023 [facility] PLAN OF TREATMENT No Information
--- OUTSIDE RECORDS SUMMARY | 2024-07-26 15:51 | XMS_ITS ---
Author Organization [facility] Address [address] [address] Care Team Providers Care Copper Tapper Name Role Phone tomasa talbot Primary Care Provider [facility] Unavailable [phone] ALLERGIES Allergen (clinical drug ingredient) Drug/Non Drug Allergy documented on EMR Reaction Allergy Type Onset Date Status bupivacaine Sensorcaine Unknown Drug Allergy Act karely lidocaine Lidocaine Unknown Drug Allergy Active REASON FOR VISIT Left knee osteoarthritis with excellent response to cortisone injection. MEDICATIONS Medication SIG (Take, Route, Frequency, Duration) Notes Start Date End Date Status Cardizem LA 240 MG Oral for 90 Unknown dilTIAZem HCl ER Coated Beads 240 MG (Prior Auth#:[id number]) Oral for 90 Unknown Omeprazole 20 MG (Prior Auth#:[id number]) Oral for 90 Unknown Atorvastatin Calcium 20 MG (Prior Auth#:[id number]) Oral for 90 Unknown Lipitor Active Eliquis Active Finasteride 5 MG Oral for 90 U nknown SOCIAL HISTORY Tobacco Use: Social History Observation Description Date Details (start date - stop date) Never Smoker NA - NA Sex Assigned At : Social History Observation Description Sex Assigned At Unknown Smoking Question Answer Notes Do you smoke? Never smoker Additional Findings: Tobacco Non-User Current no n-smoker VITAL SIGNS Height 5ft 9in in 07/03/2023 Weight 173 lbs 07/03/2023 BMI 25.54 kg/m2 07/03/2023 Encounters Encounter Location Date Provider Diagnosis [place] [address] [address] [address] 07/03/2023 [facility] Primary osteoarthrit is of left knee M17.12 ; Bilateral primary osteoarthritis of knee M17.0 and Arthritis of knee, left M17.12 ASSESSMENTS Encounter Date Diagnosis Assessment Notes Treatment Notes Treatment Clinical Notes 07/03/2023 Primary osteoarthritis of left knee (ICD-10 - M17.12) CORTISONE INJECTION LEFT KNEE After discussion of risks, benefits, and alternatives, the patient opted to proceed with the injection. Under sterile conditions 2 cc of Kenalog and 4 cc of Marcaine were injected into the left knee. The patient tolerated the procedure well. The patient was given post-injection instructions and precautions. 07/03/2023 Bilateral primary osteoarthritis of knee (ICD-10 - M17.0) Patient Educated with: Anatomy of the Knee.pdf (AnatomyoftheKnee.pd f) IMPRESSION: Left knee osteoarthritis. PLAN: Left knee intraarticular cortisone injection. We will see him back in about 2 months for repeat evaluation as he is having some mild mechanical symptoms. The patient and I discussed their condition completely. Treatment options and associated risks and benefits were reviewed. All questions were answered and explained to their satisfaction. Dictated by Dave Fung/randal 07/03/2023 Arthritis of knee, left (ICD-10 - M17.12) PLAN OF TREATMENT Treatment Notes Assessment Notes Primary osteoarthritis of left knee JAVED ISONE INJECTION LEFT KNEE After discussion of risks, benefits, and alternatives, the patient opted to proceed with the injection. Under sterile conditions 2 cc of Kenalog and 4 cc of Marcaine were injected into the left knee. The patient tolerated the procedure well. The patient was given post-injection instructions and precautions. Bilateral primary osteoarthritis of knee Patient Educated with: Anatomy of the Knee.pdf (AnatomyoftheKnee.pdf) IMPRESSION: Left knee osteoarthritis. PLAN: Left knee intraarticular cortisone injection. We will see him back in about 2 months for repeat evaluation as he is having some mild mechanical symptoms. The patient and I discussed their condition completely. Treatment options and associated risks and benefits were reviewed. All questions were answered and explained to their satisfaction. Dictated by Dave Fung/randal Next Appt Details Follow Up: 6 Weeks, Reason: MEDICATIONS ADMINISTERED Medication Instructions Date of Administration Dosage Notes Cortisone L Knee intra artic ular injection 07/03/2023 Progress Notes * Examination Category Sub-Category Detail Notes GENERAL EXAMINATION General appearance: Within n ormal limits Skin: Exam of upper extrem ities and lower extremeties are within normal limits Neurologic: grossly intact Orientation: Alert and Oriented x 3 (Time, Place, Person) Mood: Within normal limits Gait: Without significant limitation Vascular: Exam is grossly norm al
== END 2024-07-26 15:31 | disposition home or self-care (01) ==
PROVIDERS: PCP Internal Medicine; Visit Provider Urology
DX: R97.20 Elevated prostate specific antigen [PSA] (principal); Z13.9 Encounter for screening, unspecified
CPT/HCPCS: 99213

== ENCOUNTER → 2024-07-26 14:54 | Outpatient (BNVA) | payer MEDICARE, OTHER, SELFPAY | PROVIDERS: PCP Internal Medicine; Visit Provider Urology | DX: N32.89 Other specified disorders of bladder (principal); R97.20 Elevated prostate specific antigen [PSA] | CPT/HCPCS: 81003; 99212 ==

== ENCOUNTER 2025-01-24 11:24 | Outpatient (AMB) | payer MEDICARE, OTHER, SELFPAY ==
--- OUTSIDE RECORDS SUMMARY | 2024-09-23 06:15 | XMS_ITS ---
Author Organization [facility] Address [address] [address] Care Team Providers Care Ear Specialist Name Role Phone tomasa talbot Primary Care Provider Dylon Seo Unavailable [phone] ALLERGIES Allergen (clinical drug ingredient) Drug/Non Drug Allergy documented on EMR Reaction Allergy Type Onset Date Status bupivacaine Sensorcaine Unknown Drug Allergy Act karely lidocaine Lidocaine Unknown Drug Allergy Active REASON FOR VISIT Left knee osteoarthritis with excellent response to cortisone injection. MEDICATIONS Medication SIG (Take, Route, Frequency, Duration) Notes Start Date End Date Status Atorvastatin Calcium 20 MG (Prior Auth#:[id number]) Oral for 90 Active Omeprazole 20 MG (Prior Auth#:[id number]) Oral for 90 Active Lipitor Unknown dilTIAZem HCl ER Coated Beads 240 MG (Prior Auth#:[id number]) Oral for 90 Unknown Finasteride 5 MG Oral for 90 U nknown Vitamin D3 Active Tadalafil Active Calcium + D Active Cardizem LA 240 MG Oral for 90 Active Eliquis Active Multivitamin Active SOCIAL HISTORY Tobacco Use: Social History Observation Description Date Details (start date - stop date) Former Smoker NA - NA Sex Assigned At : Social History Observation Description Sex Assigned At Unknown Smoking Question Answer Notes Do you smoke? Former smoker Additional Findings: Tobacco Non-User Current no n-smoker VITAL SIGNS Height 69 in 09/23/2024 Weight 173 lbs 09/23/2024 BMI 25.54 kg/m2 09/23/2024 Encounters Encounter Location Date Provider Diagnosis [place] [address] [facility] [address] [place] [address] [address] [place] [address] 09/23/2024 [facility] Bilateral primary osteoarthritis of knee M17.0 ; Primary osteoarthritis of left knee M17.12 and Arthritis of knee, left M17.12 ASSESSMENTS Encounter Date Diagnosis Assessment Notes Treatment Notes Treatment Clinical Notes Section Notes 09/23/2024 Bilateral primary osteoarthritis of knee (ICD-10 - M17.0) Patient Educated with: Anatomy of the Knee.pdf (AnatomyoftheKnee. pdf) Patient Educated with: Osteoarthritis.pdf (Osteoarthritis.pd f) DATA: Radiographs reveal mild to moderate osteoarthritis with medial joint space narrowing. IMPRESSION: Recurrent left knee pain secondary to osteoarthritis. PLAN: We will proceed with a left knee intraarticular cortisone injection. He will follow up as needed. The patient and I discussed their condition completely. Treatment options and associated risks and benefits were reviewed. All questions were answered and explained to their satisfaction. Dictated by Dave Fung 09/23/2024 Primary osteoarthritis of left knee (ICD-10 - M17.12) CORTISONE INJECTION LEFT KNEE After discussion of risks, benefits, and alternatives, the patient opted to proceed with the injection. Under sterile conditions 2 cc of Kenalog and 4 cc of Marcaine were injected into the left knee. The patient tolerated the procedure well. The patient was given post-injection instructions and precautions. 09/23/2024 Arthritis of knee, left (ICD-10 - M17.12) PLAN OF TREATMENT Treatment Notes Assessment Notes Bilateral primary osteoarthritis of knee Patient Educated with: Anatomy of the Knee.pdf (AnatomyoftheKnee.pdf) Patient Educated with: Osteoarthritis.pdf (Osteoarthritis.pdf) DATA: Radiographs reveal mild to moderate osteoarthritis with medial joint space narrowing. IMPRESSION: Recurrent left knee pain secondary to osteoarthritis. PLAN: We will proceed with a left knee intraarticular cortisone injection. He will follow up as needed. The patient and I discussed their condition completely. Treatment options and associated risks and benefits were reviewed. All questions were answered and explained to their satisfaction. Dictated by Dave Fung/randal Primary osteoarthritis of left knee JAVED ISONE INJECTION LEFT KNEE After discussion of risks, benefits, and alternatives, the patient opted to proceed with the injection. Under sterile conditions 2 cc of Kenalog and 4 cc of Marcaine were injected into the left knee. The patient tolerated the procedure well. The patient was given post-injection instructions and precautions. MEDICATIONS ADMINISTERED Medication Instructions Date of Administration Dosage Notes Cortisone L Knee intra artic ular injection 09/23/2024 Progress Notes * Examination Category Sub-Category Detail Notes Category Not es GENERAL EXAMINATION General appearance: Within normal limits Skin: Exam of upper extrem ities and lower extremeties are within normal limits Neurologic: grossly intact Orientation: Alert and Oriented x 3 (Time, Place, Person) Mood: Within normal limits Gait: Without significant limitation Vascular: Exam is grossly norm al History and Physical Notes * HPI (History of Present Illness) Category Sub-Category Detail Notes Category Not es FOLLOW UP HISTORY: He presents back. He has had recurrent discomfort in his left knee. He gets quite significant relief from his left knee cortisone injections for months at a time. Physical Examination Category Sub-Category Detail Notes Section Note s PHYSICAL EXAMINATION: Minimal medial joint line tenderness. Pain with hyperflexion.
--- NOTE | 2025-01-24 11:23 | MHC.OFFVIS ---
Intake Visit Reasons: 6 month follow up/ PVR Intake Note: Patient is present for 6 mo follow up Urology Medication:FINASTERIDE,TADALAFIL Antibiotic Allergy:NONE Blood Thinner:APIXABAN Leadite Heater Required: No Accompanied by: Self / Same As Patient Allergies No Known Allergies Allergy (Verified 01/24/25 11:32) HPI Comments Details: Fco is a pleasant male. He is a patient of Dr. Wu. He is seen for the following urologic issues - elevated PSA - lower urinary tract symptoms Six-month follow-up Continue good bladder stability on combination of finasteride 3 times a week and daily tadalafil Did discuss potential need for prostate procedure He is interested in a procedure at the right time Lower urinary tract symptoms Has combination symptoms both storage and emptying related Urgency secondary to diet Has been on finasteride every other day for bladder emptying Prior urgency - failed oxybutynin Elevated PSA Effective for urination with minimal symptoms He presents for - further evaluation of elevated PSA, Current management is - finasteride Laboratory investigations include - a total PSA evaluation - 03/17 3.5, 05/18 4.9, 07/19 3.7, 01/16 4.5, 06/18 2.4, 12/18 1.5 Imaging investigations include - none Individualized Prostate Cancer Risk Calculator - < 5% high risk - would like to continue with PSA A TRUS biopsy - has not been performed Symptoms include -minimal nocturia. Overall symptoms are mild Therapeutic plan will be -cease finasteride [facility] Social History Years Smoked: 25-30 years Review of Systems Const Denies chills and Denies fever(s) Card Reports no additional complaints and Denies syncope Resp Denies cough GI Denies abdominal pain and Denies heartburn Reports as per HPI and Denies change in libido Neuro Denies syncope Psych Denies change in libido Endo Denies change in libido Physical Exam Const General: cooperative, healthy appearing, comfortable and no acute distress Orientation/consciousness: patient oriented x3 HEENT Face and sinus: Yes normal facial exam Mouth: moist mucous membranes Neck Neck: Yes normal visual inspection, Yes full ROM and Yes trachea midline Chest Chest palpation & inspection: normal inspection of the chest Resp Effort & Inspection: normal respiratory effort, able to speak in complete sentences and no respiratory distress GI Inspection: Yes normal to inspection Back/Spine/Pelvis Cervical Spine: normal cervical lordosis Thoracic/Lumbar Spine: thoracic and lumbar spine normal to inspection Skin General skin exam: no rashes or lesions noted Neuro General: patient oriented x3, gait normal, tone normal and moves all extremities Extrem General: Yes normal to inspection and Yes capillary refill normal Assessment & Plan Assessment & Plan (1) Elevated PSA: Code(s): R97.20 - Elevated prostate specific antigen [PSA] Category: Medical (2) BPH w urinary obs/LUTS: Code(s): N40.1 - Benign prostatic hyperplasia with lower urinary tract symptoms; N13.8 - Other obstructive and reflux uropathy Category: Medical (3) Bladder instability: Code(s): N32.89 - Other specified disorders of bladder Category: Medical Plan 12 month follow-up PSA Orders: Orders Prostate Specific Antigen 12 Months N13.8 - Other obstructive and reflux uropathy, N40.1 - Benign prostatic hyperplasia with lower urinary tract symptoms Medications: Refilled finasteride 5 mg PO DAILY 90 tabs 1RF 90 days N13.8 - Other obstructive and reflux uropathy, N40.1 - Benign prostatic hyperplasia with lower urinary tract symptoms, R33.9 - Retention of urine, unspecified, R97.20 - Elevated prostate specific antigen [PSA] tadalafil 5 mg PO DAILY 90 tabs 3RF sexual activity 90 days N32.89 - Other specified disorders of bladder Patient Instructions: This note is constructed using voice recognition software. While every effort has been made to ensure accuracy plant pathology teacher errors may have been included. Imaging studies, laboratory and physical exam results were discussed and reviewed in detail. No major barriers to patient understanding were identified. An opportunity to ask questions regarding the treatment plan was provided. All questions were answered. The patient expressed understanding and agreement with the above treatment plan. The patient is aware they should contact our office by phone for worsening of their current condition or the appearance of new urologic symptoms. Compliance is encouraged with any medications and followup testing that is ordered. It is a privilege to participate in the urologic care of your patient. If you have any questions or concerns regarding treatment for the above conditions, or other urologic issues, please do not hesitate to contact me. The office telephone contact is [phone]. Sincerely, Dr Alexander Manzano MD, CIND[facility] - Urology Compassionate Specialist Care for the Genitourinary System Coding Level of Care Code Est Pt Level 3 (01749) Complex EM visit Add On G2211 Diagnoses Elevated PSA R97.20 BPH w urinary obs/LUTS N40.1; N13.8 Bladder instability N32.89
--- OUTSIDE RECORDS SUMMARY | 2025-01-24 12:35 | XMS_ITS | Clinical Summary ---
Author Organization [facility] Address [address] [place] [address] Care Team Providers Care Outbound Sales Agent Name Role Phone No, Pcp PATCH DRILLER Primary Care Provider Unavailabl e Social History [...] Adults 18 yrs or above (or HM Modifier)([facility]) 1976 Hepatitis C Virus Infection in Adolescents and Adults: Screening (or Modifier) ([facility]) 1976 SDCA Screening Reminder: Christel kim for all adults ([facility]) 1976 Tobacco Smoking Cessation: i n Adults excluding Women: Behavioral and Pharmacotherapy Interventions ([facility]) 1976 DTaP/Tdap/Td Vaccines ([facility]) (1 - Tdap) 1977 Colorectal Cancer Screening 45 -75 Yrs (or HM Modifier ) 2003 Colorectal Cancer: FLEXIBLE SIGMOIDOSCOPY Screening every 5 yrs 2003 Colorectal Cancer: Fecal Imm unochemical Test (FIT) Annually [facility] 2003 Colorectal Cancer: High-sens itivity gFOBT Screening Annually [facility] 2003 Colorectal Cancer: Stool Col oguard Screening every 3 yrs 2003 Colorectal Cancer:CT Colonography Screening every 5 yr s 2003 Pneumococcal Vaccination Scr eening: Patients 50+ yrs of age ([facility]) (1 of 1 - PCV) 2008 Zoster/Shingles Vaccine Seri es Screening: Adults aged 18+ yrs (or HM Modifiers)([facility]) (1 of 2) 2008 COVID-19 Vaccine Screening: Initial Series and Booster Status ([facility]) (2023- season) 2024 Flu Vaccination: Ages 65+: Y early High Dose Recommended (or Modifier)([facility]) 01/27/2025 RSV Vaccines (1 - 1-dose 75+ series) 2033 Medical Devices Not on file Insurance [facility] Care Teams Outbound Sales Agent Relationship Specialty Start Date End Date No, Pcp, PATCH DRILLER N/A Do not use PCP - General Family Medicine 05/03/20
--- OUTSIDE RECORDS SUMMARY | 2025-01-24 12:36 | XMS_ITS | Clinical Summary ---
Author Organization [address] [place] [address] [place] [phone] Phone Care Team Providers Care Charge Entry Clerk Name Role Phone Kali Wu MD Primary Care Provider + [phone] Allergies Active Allergy Reactions Criticality Noted Date Comments Bee Venom Protein (Honey Bee) 05/07/2022 Other reaction(s): Bad swelling Bupivacaine 07/21/2023 Other reaction(s): Unknown Lidocaine 07/21/2023 Other Reaction(s): OTHER Medications dilTIAZem CD (CARDIZEM CD) 240 mg 24 hr capsule Take 1 capsule (240 mg total) by mouth 1 (one) time each day. Active atorvastatin (LIPITOR) 20 mg tablet Take 20 mg by mouth daily. Active omeprazole (PRILOSEC) 20 mg tablet,delayed release (DR/EC) Take 20 mg by mouth daily. Active fexofenadine/ps eudoephedrine (ALEX-D 24 HOUR ORAL) Take by mouth. Active tadalafiL (CIALIS) 10 mg tablet Take 1 tablet (10 mg total) by mouth 1 (one) time each day if needed for erectile dysfunction. Active apixaban (ELIQUIS) 5 mg tablet Take 1 tablet (5 mg total) by mouth 2 (two) times a day. Active multivitamin with minerals tablet Take 1 tablet by mouth 1 (one) time each day. Active calcium carbonate 1,500 mg (600 mg elemental calcium) tablet Take 1 tablet (1,500 mg total) by mouth. Active Active Problems Problem Noted [...] encouraged a low-sodium diet and regular exercise Assessment & Plan (08/02/2024 10:09 AM EST): I do believe this gentleman is normotensive with a mild form of whitecoat hypertension. He will continue his healthy lifestyle and low-sodium diet. Paroxysmal atrial fibrillation (CMS/HCC V24, CMS /HCC V28) 09/12/2020 Overview (05/30/2024): Paroxysmal atrial fibrillation Last Assessment & Plan: This very pleasant 63-year-old gentleman with a TVT4YT6-CHIy score of 2 remains on anticoagulation and [...] he is trying to maintain stable weight. Assessment & Plan (08/02/2024 10:09 AM EST): This 64-year-old gentleman with paroxysmal atrial fibrillation is doing reasonably well on diltiazem and Eliquis. His [id number]-DVWh score is essentially of 1 as he has only whitecoat hypertension and no coronary disease diabetes or prior stroke. He does feel reasonably comfortable continuing with Eliquis and we went through the pros and cons of Eliquis in detail. We talked about the treatment of his atrial fibrillation and given he continues to have episodes I went through the ablation procedure with him. I talked about the potential complications and success rates and he took some literature and will let me know if he wants to proceed. In the meantime we will continue with diltiazem. I did discuss the potential to use a drug such as Multaq or flecainide but we did not feel that he needed an antiarrhythmic at this time Encounters Date Type Department Care Team Description 12/11/2024 7:00 AM EDT Ancillary Procedure [facility] - [address] [facility] [address] [place] [address] Paroxysmal atrial fibrillation (CMS/HCC V24, CMS/HCC V28) 12/01/2024 Telephone [facility] [address] [phone] George Rojas MD ROCT - 73791 (Ok to Book); ROCT Enrollment (Enrolling patient for 14 day ROCT) 11/30/2024 10:10 AM EDT Office Visit [facility] - [facility] [address] [facility] [address] [place] [phone] Jessica Beavers NP PAC (premature atrial contraction) (Primary Dx); Paroxysmal atrial fibrillation (CMS/HCC V24, CMS/HCC V28) 10/28/2024 Telephone [facility] [address] [facility] [address] [place] [address] George Rojas MD Wound Check 10/26/2024 10:02 AM EDT Anesthesia Event [facility] [address] [place] [phone] Ankita Rosario MD Burton, Heather, CRNA 10/26/2024 9:30 AM EDT - 10/26/2024 11:30 AM EDT Surgery [facility] [address] [place] [phone] George Rojas MD Ablation atrial fibrillation with complete EP study [44029 (CPT )] 10/26/2024 8:30 AM EDT - 10/26/2024 3:08 PM EDT Hospital Encounter [facility] [address] [place] [address] George Rojas MD Paroxysmal atrial fibrillation (CMS/HCC V24, CMS/HCC V28) Discharge Disposition: Home or Self Care from Last 3 Months Surgical History Surgery Date Site/Laterality Comments ABLATION DONE ON 10/26/2024 AT [facility] W J[facility] INDICATIONS:Afib Social History Tobacco Use Types Packs/Day Years Used Date Smoking Tobacco: Former Smokeless Tobacco: Never Alcohol Use Standard Drinks/Week Comments Yes 0 (1 standard drink = 0.6 oz pur e alcohol) Sex and Gender Information Value Date Recorded Sex Assigned at Not on file Legal Sex Male 3:33 PM EST Gender Identity Not on file Sexual Orientation Not on file Obstetrics History Last Filed Vital Signs Vital Sign Reading Time Taken Comments Blood Pressure 140/80 11/30/2024 10:06 AM EDT Pulse 71 11/30/2024 10:06 AM EDT Temperature 36 C (96.8 F) 10/26/2024 12:00 PM EDT Respiratory Rate 16 10/26/2024 2:30 PM EDT Oxygen Saturation 99% 11/30/2024 10:06 AM EDT Inhaled Oxygen Concentration - - Weight 77.1 kg (170 lb) 11/30/2024 10:06 AM EDT Height 175.3 cm (5' 9 ) 11/30/2024 10:06 AM EDT Body Mass Index 25.1 11/30/2024 10:06 AM EDT Plan of Treatment Upcoming Encounters Date Type Department Care Team (Late st Contact Info) Description 03/07/2025 1:40 PM EDT Office Visit [facility] - [address] [place] [address] Jessica Beavers NP [address] [place] [address] Health Maintenance Due Date Last Done Comments DTaP,Tdap,and Td Vaccines (1 - Tdap) 1977 Zoster Vaccines (1 of 2) 2008 Abdominal Aortic Aneurysm (AAA) Screen 05/28/2022 Cholesterol Screening (Lipid Panel) 05/28/2022 Colorectal Cancer Screening: Colonoscopy 05/28/2022 Hepatitis C Screening 05/28/2022 Medicare Annual Wellness Visit 05/28/2022 Social Influencers of Health Screening 05/28/2022 Falls Risk Assessment 2023 COVID-19 Vaccine ( season) 2024 04/20/2022, 06/08/2021, 08/08/2020, Additional history exists Depression Screening 06/29/2024 Influenza Vaccine (#1) 2025 , 04/21/2023, 04/12/2022, Additional history exists Hypertension/CHF/CAD Annual BMP Blood Test 10/19/2025 10/19/2024 RSV Immunization Adult Patients (1 - 1-dose 75+ series) 2033 Pneumococcal Vaccine: 50+ Years Completed 2024, 01/21/2007 HIB Vaccines Aged Out No longer eligi [...] patient's age to complete this topic Meningococcal B Vaccine Aged Out No l onger eligible based on patient's age to complete this topic RSV Immunization Patients Under 20 months Aged Out No longer eligible based on patient's age to complete this topic Varicella Vaccines Aged Out No longer eligible based on patient's age to complete this topic Medical Devices Implanted Type Area Environment Friendly Landscape Designer Device Identifier Shelf Expiration Date Model / Serial / Lot Device Clsreginald Caraballocade Mvp 6-12f [facility] Art - [id number] - [id number] Implanted:Qty: 2 on 10/26/2024 by George Rojas MD at [facility] Vascular Closure Devices Left: Groin [employer]- [employer]EM[employer] 08/24/2026 [id number] / [id number] / Plug Fem Artery Closure Vascade Mvp Collagen Ster - [id number] - [id number] Implanted:Qty: 1 on 10/26/2024 by George Rojas MD at [facility] Vascular Grafts Right: Groin [employer]- [employer] ITEM[employer] [id number] 03/21/2026 [id number] / [id number] / Procedures Procedure Name Priority Date/Time Associated Diagnosis Comments CARDIAC BINDING BENCH WORKER W/ CONNECTION (MCOT) Routine 12/12/2024 9:59 AM EDT Paroxysmal atrial fibrillation (CMS/HCC V24, CMS/HCC V28) ECG 12-LEAD Routine 11/30/2024 10:36 AM EDT PAC (premature atrial contraction) ABLATION A-FIB W COMPLETE EP STUDY Routine 10/26/2024 11:57 AM EDT Paroxysmal atrial fibrillation (CMS/HCC V24, CMS/HCC V28) POCT ACTIVATED CLOTTING TIME, KAOLIN Routine 10/26/2024 11:15 AM EDT POCT ACTIVATED CLOTTING TIME, KAOLIN Routine 10/26/2024 11:02 AM EDT POCT ACTIVATED CLOTTING TIME, KAOLIN Routine 10/26/2024 10:49 AM EDT POCT ACTIVATED CLOTTING TIME, KAOLIN Routine 10/26/2024 10:37 AM EDT TH AN ENDOTRACHEAL(NO CHARGE) Routine 10/26/2024 10:24 AM EDT TYPE AND SCREEN Routine 10/26/2024 8:58 AM EDT BASIC METABOLIC PANEL Routine 10/19/2024 3:18 PM EDT from Last 3 Months or Most Recently Relevant to Health Maintenance Results * CARDIAC BINDING BENCH WORKER W/ CONNECTION (MCOT) (12/12/2024 9:59 AM EDT) Anatomical Region Laterality Modality Cardiac Diagnost ic Impressions 01/02/2025 3:08 PM EDT Normal sinus rhythm with an average heart rate of 73 bpm. Frequent premature atrial complexes with a 13-second atrial runs which may represent a persistent pulmonary vein focus but there was no atrial fibrillation seen. 2 patient triggered symptomatic events corresponded to a PAC and a PVC. Narrative 01/02/2025 3:08 PM EDT [facility] DIAGNOSTIC TESTING DEPARTMENT [address] [facility], [id number], [place] [address] TEL: FAX: TYPE OF TEST 14 day ROCT monitor. DATES OF MONITORIN12/11/24- 12/25/24 REQUESTING PHYSICIAN: Jessica Beavers NP PRIMARY CARE PROVIDER: Kali Wu MD INDICATION: Paroxysmal Atrial Fibrillation PRELIMINARY FINDINGS FROM FIRST CALL MEDICAL: 1. The predominant rhythm was sinus. 2. The average heart rate was 73 bpm, minimum heart rate was 50 bpm, maximum heart rate was 139 bpm. 3. Total VE burden: < 0.1 % consisting of singles, & VE Couplet. 4. Total SVE burden: 2.5% consisting of singles, couplets, triplets, with Atrial Run's present. 5. There were 2 patient triggered symptomatic events. Jessica Beavers NP CV CARDIAC SERVICES PROCEDUR ES Final Result * ECG 12 lead (11/30/2024 10:36 AM EDT) Ventricular Rate ECG 71 BPM GEMUSE Atrial Rate 71 BPM GEMUSE P-R Interval 180 ms GEMUSE QRS Duration 98 ms GEMUSE Q-T Interval 406 ms GEMUSE QTc 441 ms GEMUSE P Wave [place] 60 degrees GEMUSE R [place] 55 degrees GEMUSE T [place] 53 degrees GEMUSE ECG Interpretation Normal sinus rhythm Normal ECG When compared with ECG of 02-AUG-2024 09:44, No significant change was found Confirmed by Dave ROJAS JOHN ([id number]) on 12/01/2024 3:30:11 PM GEMUSE 11/30/2024 10:0 9 AM EDT 12/01/2024 3:30 PM EDT Jessica Beavers VIRIDIANA ECG ORDERABLES Edited Resul t - Final GEMUSE * ABLATION A-FIB W COMPLETE EP STUDY (10/26/2024 11:57 AM EDT) Anatomical Region Laterality Modality X-Ray Angiograph y Narrative 10/27/2024 7:21 AM EDT Successful pulmonary vein isolation using pulsed field ablation Study Details Symptomatic paroxysmal atrial fibrillation Procedure Details After obtaining written informed consent the patient was brought to the EP laboratory in the fasting state and was placed under general anesthesia by her anesthesiology service. After the usual sterile prep and local anesthesia with 1% lidocaine I placed 3 femoral venous sheaths using ultrasound guidance. An intracardiac echo probe was advanced to the heart and the cardiac anatomy identified. Before pulmonary vein ostia were identified. The left atrial appendage was documented to be free of thrombus and there was documentation of any pericardial effusion pre and post procedure. The ice catheter was used for safe transseptal passage and monitoring the left-sided catheters throughout the procedure. I placed a quadripolar catheter in the ventricle after making a map of the right atrium using 3D mapping. This was used to measure the AH and HV interval and to backup pace the ventricle as needed. I then placed a Medtronic transseptal sheath in the SVC over guidewire and after giving heparin by weight-based protocol I withdrew that sheath until I tented the interatrial septum crossing in the mid mid location advancing a needle and a guidewire out the left upper vein. The sheath and dilator were then advanced into the mid chamber and the dilator and wire removed. After evacuating air and irrigating with heparinized saline I connected to a heparin line that was continuously ran throughout the procedure at 75 cc/hr. I then placed an advisor grid catheter from [facility] into the heart and made a detailed three-dimensional map identifying all 4 pulmonary veins, left atrial appendage and assessing voltage throughout. Mid posterior wall voltage was normal. I then withdrew that catheter and placed the Medtronic pulse select PFA catheter into the heart after prepping in the standard fashion. I then delivered lesions to the left upper and left lower veins with the pulse select and then lesions to the right upper and right lower surrounding the antrum and ostium of the veins. Subsequent mapping with the advisor grid showed complete isolation of upper and lower veins on both sides with exit and entrance block confirmed. I left the posterior wall healthy given there was normal voltage and this is a paroxysmal atrial fibrillation patient. After confirming the absence of any proximal effusion I removed everything from the left side gave protamine and placed 3 Vascade devices with a 5-minute manual hold for hemostasis purposes. The patient was extubated and recovered returned to recovery in stable condition with no immediate complications. Jessica Beavers NP CV ELECTROPHYSIOLOGY PROCEDU RES Final Result * (ABNORMAL) POCT activated clotting time,kaolin (10/26/2024 11:15 AM EDT) Only the most recent of4 resultswithin the time period is included. Activated Clotting Time Kaolin 349(H) 74 - 137 sec 10/26/2024 3:10 PM EDT [facility] Blood Venous blood specimen / Unknown 10/26/2024 11:15 AM EDT 10/26/2024 3:12 PM EDT George Rojas MD LAB POINT OF CARE TE ST DOCKED DEVICE UNSOLICITED RESULTS Final Result [facility] [address] [place] [address], [place] [phone] * TH AN ENDOTRACHEAL(NO CHARGE) (10/26/2024 10:24 AM EDT) Genny Calderon CRNA - 10/26/2024 10:24 AM EDT Genny Finch CRNA 10/26/2024 10:24 AM General Information and Staff Patient location during procedure: OR Resident/MEDICAL ASSISTANT INTERNAL MEDICINE: Genny Finch CRNA Performed: resident/MEDICAL ASSISTANT INTERNAL MEDICINE/CAA Performed by: Genny Finch CRNA Authorized by: Ankita Rosario MD Intubation Urgency: elective Final Airway Details Successful airway: ETT Cuffed: yes Successful intubation technique: direct laryngoscopy Facilitating devices/methods: intubating stylet Endotracheal tube insertion site: oral Blade: Avni Blade size: #3 ETT size (mm): 7.5 Cormack-Lehane Classification: grade IIb - view of arytenoids or posterior of glottis only Placement verified by: chest auscultation and capnometry Measured from: lips ETT to lips (cm): 22 Number of attempts at approach: 1Final airway type: endotracheal airway Indications and Patient Condition Indications for airway management: anesthesia Spontaneous Ventilation: absent Sedation level: Yes Preoxygenated: yes Soft Tissue Damage: No Dentition Unchanged: Yes Patient position: sniffing Mask difficulty assessment: 1 - vent by mask Ankita Rosario MD ANESTHESIA ORDERABLES Fin al Result * Type and screen (10/26/2024 8:58 AM EDT) Pathologist [facility] ABO Group A 10/26/2024 9:46 AM EDT [facility] Rh Type Positive 10/26/2024 9:46 AM EDT [facility] Antibody Screen Negative 10/26/2024 9:46 AM EDT [facility] Blood Venous blood specimen / Unknown Venipuncture / Unknown 10/26/2024 8:58 AM EDT 10/26/2024 9:03 AM EDT us Amirah Reeves RECYCLER FORKLIFT DRIVER TRUCK DRIVER LAB BLOOD BANK TEST ORDERA BLES Final Result [facility] [address] [place] [address], [place] [phone] * (ABNORMAL) Basic metabolic panel (10/19/2024 3:18 PM EDT) Glucose 101(H) 70 - 99 mg/dL [facility] Blood Urea Nitrogen (BUN) 14 8 - 27 mg/dL [facility] Creatinine 0.99 0.76 - 1.27 mg/dL [facility] 1 eGFR 84 >59 mL/min/1.7 3 [facility] 1 BUN/Creatinine Ratio 14 10 - 24 [facility] 1 Sodium 144 134 - 144 mmol/L [facility] 1 Potassium 4.3 3.5 - 5.2 mmol/L [facility] 1 Chloride 103 96 - 106 mmol/L [facility] 1 Carbon Dioxide 18(L) 20 - 29 mmol/L [facility] 1 Calcium 9.6 8.6 - 10.2 mg/dL [facility] 1 10/19/2024 3:18 PM EDT 10/19/2024 Narrative [facility] - 10/20/2024 6:07 PM EDT Performed at: - [facility] [address] [id number] Reheater: Lawanda Gonsalez MD, Phone: [phone] us George Rojas MD LAB BLOOD ORDERABLES Final Res ult [facility] 1 from Last 3 Months or Most Recently Relevant to Health [place] [id number] [facility] Care Teams Charge Entry Clerk Relationship Specialty Start Date End Date Kali Wu MD [address] [place] [address] PCP - General Internal Medicine 08/01/24
== END 2025-01-24 11:56 | disposition home or self-care (01) ==
LOC: HO.HUSH 11:24
PROVIDERS: PCP Internal Medicine; Visit Provider Urology
DX: R97.20 Elevated prostate specific antigen [PSA] (principal); N40.1 Benign prostatic hyperplasia with lower urinary tract symptoms; N13.8 Other obstructive and reflux uropathy; N32.89 Other specified disorders of bladder; Z13.9 Encounter for screening, unspecified
CPT/HCPCS: 99213; G2211

== ENCOUNTER → 2025-01-24 11:24 | Outpatient (BNVA) | payer MEDICARE, OTHER, SELFPAY | PROVIDERS: PCP Internal Medicine; Visit Provider Urology | DX: N40.1 Benign prostatic hyperplasia with lower urinary tract symptoms (principal); N13.8 Other obstructive and reflux uropathy; N32.89 Other specified disorders of bladder; R97.20 Elevated prostate specific antigen [PSA] | CPT/HCPCS: 51798; 81003; 99212 ==